=== PATIENT | female | born 1975 | race Caucasian/White ===

== ENCOUNTER 2019-05-10 09:39 | Day surgery (SDC) | payer MEDICAID ==
[2019-05-03 14:00] LABS: CLARITY,URINE CLOUDY (Clear); COLOR,URINE YELLOW (Yellow); GLUCOSE, URINE NEGATIVE (Neg); KETONES,URINE NEGATIVE (Neg); LEUKOCYTE ESTERASE ,URINE TRACE (Neg); NITRITES, URINE NEGATIVE (Neg); OCCULT BLOOD,URINE LARGE (Neg); PROTEIN,URINE TRACE mg/dl (Neg); UROBILINOGEN,URINE 0.2 E.U/dL (0.2-1.0)
[2019-05-03 14:00] LABS: BASOPHILS % (AUTO) 0.4 % (0-1); EOSINOPHILS # (AUTO) 0.2 X10'3 (0-0.9); EOSINOPHILS % (AUTO) 3.2 % (0-6); LYMPHOCYTES # (AUTO) 2.5 X10'3 (1.1-4.8); LYMPHOCYTES % (AUTO) 39.3 % (21-51); MEAN CORPUSCULAR HEMOGLOBIN 30.4 PG (27.0-31.0); MEAN CORPUSCULAR HGB CONC 33.9 g/dL (33.0-36.5); MEAN CORPUSCULAR VOLUME 89.7 FL (78-98); MEAN PLATELET VOLUME 7.1 FL (7.4-10.4); MONOCYTES # (AUTO) 0.4 X10'3 (0-0.9); MONOCYTES % (AUTO) 6.3 % (2-12); NEUTROPHILS # (AUTO) 3.2 X10'3 (1.8-7.7); NEUTROPHILS % (AUTO) 50.8 % (42-75); PRE OP HEMATOCRIT 42.2 % (35.0-45.0); PRE OP HEMOGLOBIN 14.3 g/dL (12.0-16.0); PRE OP PLATELET COUNT 310 X10'3 (140-440); RED BLOOD COUNT 4.71 X10'6 (4.20-5.60)
[2019-05-03 14:06] LABS: UA COLLECTION TYPE CLN CATCH MIDSTREAM
[2019-05-03 14:07] LABS: RBC,URINE TNTC /HPF (0-2)
[2019-05-03 14:08] LABS: BACTERIA,URINE 1+ /HPF (Neg); MUCUS STRANDS FEW /LPF (Neg); SQUAMOUS EPITHELIAL CELL,UR MODERATE /LPF (FEW)
[2019-05-03 14:08] LABS: HCG SERUM QL NEGATIVE
[2019-05-03 14:15] LABS: ALBUMIN 3.6 G/DL (3.4-5.0); ALKALINE PHOSPHATASE 50 IU/L (46-116); BLOOD UREA NITROGEN 8 MG/DL (7-18); BUN/CREATININE RATIO 12.5 (6.6-38.0); CALCIUM 8.5 MG/DL (8.5-10.1); CHLORIDE 107 MMOL/L (99-107); CREATININE 0.64 MG/DL (0.40-0.90); PRE OP ALT 18 U/L (30-65); PRE OP ANION GAP 8 (8-16); PRE OP AST 25 U/L (10-37); PRE OP BILIRUB, TOTAL 0.5 MG/DL (0.0-1.0); PRE OP GLUCOSE 94 MG/DL (70-104); PRE OP POTASSIUM 3.6 MMOL/L (3.4-5.1); PRE OP SODIUM 142 MMOL/L (135-145); TOTAL CARBON DIOXIDE 26.8 MMOL/L (24-32); TOTAL PROTEIN 7.3 G/DL (6.4-8.2); eGFR > 90 ML/MIN
[2019-05-10] VITALS (7 sets, daily range): BP systolic 97–105; BP diastolic 68–76
[~2019-05-10] VITALS: Ht 160 cm; Wt 79.0 kg
[~2019-05-10 09:39] MED LIST: CHOL200077 PO; FIBER POWDER PO; OMEG1CAP13 PO; ceFOXitin 2GM-NS 100mL ADDvant 100 ML IV ONE; famotidine 20mg tablet PO ONE; ringers solution, lacted 1,000 ML IV SCH
[2019-05-10] MEDS ORDERED: ringers solution, lacted 1,000 ML IV SCH (13:51)
[2019-05-10] MEDS ORDERED: morphine 2 MG/ML inj. syringe IV PRN (13:55)
[2019-05-10] MEDS ORDERED: ondansetron/PF 4mg/2ml inj IV PRN (13:55)
[2019-05-10] MEDS ORDERED: proCHLORperazine 10 MG/2 ml inj IV PRN (13:55)
[2019-05-10] MEDS ORDERED: meperidine/PF 25mg/ml syringe IV PRN ×3 (13:55)
[2019-05-10] MEDS ORDERED: morphine 4 MG/ML inj SYRINge IV PRN (13:55)
[2019-05-10] MEDS ORDERED: BUPIVAcaine/PF 2.5 mg/ml (0.25%) 30ml vial ONE (14:23)
[2019-05-10] MEDS ORDERED: fentaNYL/PF 50MCG/1 ML 2ML syringe ONE (14:40)
[2019-05-10] MEDS ORDERED: midazolam 2 mg/2 ml injection ONE (14:41)
[2019-05-10] MEDS ORDERED: glycopyrrolate 0.2mg/ml inj ONE (15:41)
[2019-05-10] MEDS ORDERED: neostigmine methylsulfate 1 MG/ML 10ml vial ONE (15:41)
[2019-05-10] MEDS ORDERED: rocuronium 10mg/ml inj IV ONE (15:41)
[2019-05-10] MEDS ORDERED: propofol inj 20 ML IV ONE (15:42)
--- NOTE | 2019-05-10 15:56 | NUR ---
Received from OR via [facility] , accompanied by Anesthesiologist LUCINA and report given by Anesthesiolgist. PATIENT WITH 20G PIV IN LEFT UE RUNNING LR AT 100. DENIES PAIN AT THIS TIME. EBONIE RAMIREZ IN RR. VSS. 3 ABDOMINAL LAP SITES PRESENT. Addendum: 05/10/19 at 1618 by Anton Esqueda RN RN Amended: Links added.
--- NOTE | 2019-05-10 16:56 | NUR ---
ALL DC CRITERIA HAS BEEN MET. IV TAKEN OUT WITHOUT COMPLICATIONS. ALL INSTRUCTIONS COVERED AND ALL QUESTIONS ANSWERED. DRESSINGS CDI. OUT VIA WHEELCHAIR TO PERSONAL VEHICLE WHERE PATIENT WAS SECURED IN AND DRIVEN HOME BY FAMILY. Addendum: 05/10/19 at 1709 by Anton Esqueda RN, RN Amended: Links added.
== END 2019-05-10 16:56 | disposition home or self-care (01) ==
LOC: PAS 09:39
PROVIDERS: ATTEND Obstetrics & Gynecology Obstetrics
DX: R10.2 Pelvic and perineal pain (principal); N83.8 Other noninflammatory disorders of ovary, fallopian tube and broad ligament; E66.9 Obesity, unspecified; Z68.30 Body mass index [BMI] 30.0-30.9, adult; Z79.899 Other long term (current) drug therapy
CPT/HCPCS: 36415; 58662; 71046; 80053; 81001; 82948; 84703; 85025; 86885; 86900; 86901; 87077; 87088; 87186; 93005; J0694; J2250; J2704; J2710; J3010; J3490; A4618; A7000; J7120